=== PATIENT | female | born 1955 | race Caucasian/White ===

== ENCOUNTER 2018-03-31 13:00 | Outpatient (CLI) | payer BC ==
--- NOTE | 2018-03-31 13:57 | MMO ---
BILATERAL SCREENING MAMMOGRAM: Date: 03/31/18 HISTORY: 62-year-old female. Routine screening mammography. COMPARISON: 12/13/12, 12/15/13, 02/06/15, 02/19/16, 03/31/17. TECHNIQUE: CC and MLO views of both breasts are submitted for interpretation. Cleavage view also provided. This patient's mammogram was reviewed with the assistance of computer-aided detection. FINDINGS: The breasts are composed of scattered fibroglandular tissue. Bilaterally, no suspicious dominant mass , architectural distortion, or suspicious calcifications. Benign-appearing calcifications in the left breast. There is a cluster of calcifications in the upper outer left breast. IMPRESSION: BIRADS 0: Incomplete: Need Additional Imaging Evaluation and/or Prior Mammograms for Comparison RECOMMENDATION: Spot magnification compression views of the left breast in the CC and MLO projection. Mediolateral vi ews should also be performed. The facility will notify patient of need for additional imaging services. POS: [facility]
== END 2018-03-31 13:01 | disposition home or self-care (01) ==
LOC: SCSMAMMO 13:00
PROVIDERS: ATTEND Obstetrics & Gynecology
DX: Z12.31 Encounter for screening mammogram for malignant neoplasm of breast (principal)
CPT/HCPCS: 77067

== ENCOUNTER 2018-04-08 13:42 | Outpatient (CLI) | payer BC | END 2018-04-08 13:43 | disposition home or self-care (01) | LOC: BICMAMMO 13:42 | PROVIDERS: ATTEND Obstetrics & Gynecology | DX: R92.8 Other abnormal and inconclusive findings on diagnostic imaging of breast (principal); Z80.3 Family history of malignant neoplasm of breast; R92.1 Mammographic calcification found on diagnostic imaging of breast | CPT/HCPCS: G0279 ==

== ENCOUNTER → 2018-04-14 | Day surgery (SDC) | payer OTHER ==
--- NOTE | 2018-04-14 10:15 | MMO ---
PROCEDURE NOTE: Date: 04/14/18 PREPROCEDURE DIAGNOSIS: Left breast calcification upper outer left breast. POSTPROCEDURE DIAGNOSIS: Left breast calcification upper outer left breast. PROCEDURE: Stereotactic biopsy of left breast calcifications using mammographic guidance. LABORATORY TECH: Dr. Godwin. COMPLICATIONS: None. SPECIMEN: Seven 10 gauge core biopsy specimens of left breast calcifications. ANESTHESIA: 11 mL of buffered 1% lidocaine. TECHNIQUE: Prior to the procedure, the risks and benefits of a stereotactic biopsy of the patient's left breast calcifications were explained to the patient and she consented fully to the procedure. Approach from lateral was performed. The calcifications were localized by the stereotactic machine. T he lateral aspect of the breast was prepped with Betadine. Lidocaine was used to anesthetize the skin and soft tissues surrounding the calcifications. A small s kin incision was made allowing for passage of the 10 gauge vacuum-assisted core biopsy device. The core biopsy device was then advanced into the breast using stereotactic guidance into the region of the calcifications. Once in the region of the calcifications, seven 10 gauge vacuum-assisted core biopsy specimens were obtained. A specimen radiograph was performed of the surgical specimen showing calcifications within at least two of the core biopsy specimens. A biopsy clip was then placed at the biopsy site. The needle was removed and pressure was held to geneva ntain hemostasis. A postprocedure mammogram was performed showing a device clip at the biopsy site. There may be one re sidual calcification adjacent to the biopsy clip. IMPRESSION: Status post successful stereotactic biopsy of left breast calcifications. POS: [facility]
== END ==
LOC: MAMMO 07:07
PROVIDERS: ATTEND Obstetrics & Gynecology
PROC: 0HBU3ZX Excision of Left Breast, Percutaneous Approach, Diagnostic (ICD-10-PCS; principal; 2018-04-14)
DX: C50.412 Malignant neoplasm of upper-outer quadrant of left female breast (principal)
CPT/HCPCS: 19081; 76098; 88305; 88341; 88342

== ENCOUNTER 2018-05-07 15:46 | Outpatient (CLI) | payer BC ==
[2018-05-07 17:03] LABS: #Eosinphils 0.2 thou/uL (0.0-0.7); #Lymphocytes 2.6 thou/uL (1.20-3.40); #Monocytes 0.6 thou/uL (0.11-0.59); #Neutrophils 4.9 thou/uL (1.40-6.50); %Basophils 0.3 % (0.0-1.0); %Eosinophils 2.2 % (0.0-10.0); %Lymphocytes 31.2 % (21.0-51.0); %Monocytes 7.3 % (0.0-10.0); %Neutrophils 59.1 % (42.0-75.0); Hemoglobin 13.8 g/dL (12.0-16.0); Mean Corpuscular HGB CONC 34.4 g/dL (32.0-36.0); Mean Corpuscular Hemoglobin 32.3 pg (27.0-31.0); Mean Platelet Volume 7.3 fL (7.4-10.4); Platelet Count 298 thou/uL (130-400); RBC Distribution Width 11.4 % (11.5-14.5); Red Blood Cell (RBC) Count 4.29 mill/uL (4.20-5.40); White Blood Cell (WBC) Count 8.3 thou/uL (4.8-10.8)
[2018-05-07 17:16] LABS: Anion Gap 12 mmol/L (10-20); BUN (Urea Nitrogen) 12 mg/dL (9.8-20.1); Calc. Creatinine Clearance 0 mL/min (70-130); Calcium 10.1 mg/dL (7.8-10.44); Carbon Dioxide 26 mmol/L (22-29); Chloride 109 mmol/L (98-107); Estimated GFR-MDRD 81; Glucose 91 mg/dL (70-105); Sodium 143 mmol/L (136-145)
--- NOTE | 2018-05-08 22:45 | EKG ---
Test Reason : Blood Pressure : / mmHG Vent. Rate : 074 BPM Atrial Rate : 074 BPM P-R Int : 152 ms QRS Dur : 072 ms QT Int : 376 ms P-R-T Axes : 064 055 020 degrees QTc Int : 417 ms Normal sinus rhythm Normal ECG No previous ECGs available Confirmed by JEREMY ETIENNE, DR. Donis ([id number]) on 05/08/2018 10:45:19 PM Referred By: ARMANDO Confirmed By:DR. Jewels LUAN MD
== END 2018-05-07 15:47 | disposition home or self-care (01) ==
LOC: LABBT 15:46
PROVIDERS: ATTEND Surgery
DX: Z01.818 Encounter for other preprocedural examination (principal); C50.912 Malignant neoplasm of unspecified site of left female breast
CPT/HCPCS: 80048; 85025; 93005; 93010

== ENCOUNTER 2018-05-11 07:01 | Day surgery (SDC) | payer BC ==
[2018-05-07 16:07] VITALS: BMI 37.9
[2018-05-11] MEDS ORDERED: Bupivacaine/Epinephrine 0.25% 30 ML VIAL ONE (08:53)
[2018-05-11] MEDS ORDERED: Lidocaine 2% PF Inj 2 ML VIAL ONE (08:53)
[2018-05-11] MEDS ORDERED: CEFAZOLIN/Water 2 GM/20 ML SYRINGE ONE (09:33)
[2018-05-11] MEDS ORDERED: Labetalol HCl 100 MG/20 ML VIAL ONE (09:35)
--- NOTE | 2018-05-11 09:47 | NM ---
NUCLEAR MEDICINE LYMPHOSCINTIGRAPHY: HISTORY: Left breast cancer. COMPARISON: None. TECHNIQUE: The patient was administered 0.435 mCi of Technetium 99m filtered sulfur colloid subcutaneously. Rad iotracer was administered at the 12, 3, 6, and 9 o'clock positions with respect to the nipple. FINDINGS: There is evidence of a sentinel lymph node in the left axilla. The skin was marked. IMPRESSION: Left axillary sentinel lymph node. POS: [facility]
[2018-05-11] MEDS ORDERED: Fentanyl 100 MCG/2 ML VIAL ONE ×3 (10:09→12:00)
[2018-05-11] MEDS ORDERED: Midazolam HCl 2 mg/2 ml Vial ONE (10:09)
[2018-05-11] MEDS ORDERED: Ondansetron HCl/PF 4 MG/2 ML Vial ONE (12:11)
[2018-05-11] MEDS ORDERED: HYDROcodone/Acetaminophen 5/325 mg Tablet ONE (12:54)
--- NOTE | 2018-05-11 13:23 | MMO ---
LEFT BREAST NEEDLE LOCALIZATION FOR SURGICAL EXCISION. The exam is also surgical specimen. FINDINGS: Successful left breast needle localization. A 10 cm Clawson needle and wire are adjacent to the surgi zulay clip. Postprocedure exam was marked. There are no immediate or postprocedure complications. TECHNIQUE: Consent was obtained to perform a left breast needle localizaiton for surgical excision, in a patient with known breast cancer. The left breast is compressed in the lateral medial orientation. Clip as identified. The skin was prepped and draped in a sterile fashion. 1% Lidocaine , buffered with sod ium bicarbonate, was used for local anesthesia. The 10 cm Clawson needle was advanced via the lateral medial approach. Needle position was confirmed with respect to the clip. The breast was subsequentl y compressed in the CC orientation. The clip was identified. The wire was deployed. Post-deploymen t images were obtained. Needle and wire positioning was appropriate. The needle and wire were secur ed to the patient. The patient tolerated the procedure well. No immediate or post-procedure complic ation. SURGICAL SPECIMEN: A specimen containing the clip and wire was submitted. Results were conveyed to Dr. Jackman 05/11/18 at 11:20 a.m. IMPRESSION: 1. Successful needle localization. 2. Specimen demonstrates clip and wire. CODE CR POS: [facility]
[2018-05-11] MEDS ORDERED: PROPOFOL 200 MG/20 ML VIAL ONE (13:50)
[2018-05-11] MEDS ORDERED: Lidocaine 1% PF 5 ML VIAL ONE (13:50)
[2018-05-11] MEDS ORDERED: ePHEDrine/0.9% NaCl/PF SYRINGE 50 mg/10 ml ONE (13:50)
[2018-05-11] MEDS ORDERED: PHENYLEPHRINE-NS 100 MCG/ML 10 ML SYRINGE ONE (13:50)
--- NOTE | 2018-05-12 13:42 | OP ---
DATE OF PROCEDURE: 05/11/2018 PREOPERATIVE DIAGNOSIS: Left breast cancer. POSTOPERATIVE DIAGNOSIS: Left breast cancer. PROCEDURES: 1. Left partial mastectomy after needle localization. 2. Left deep axillary node biopsy (left sentinel node biopsy). SURGEON: Edmond Jackman M.D. ANESTHESIA: General. ESTIMATED BLOOD LOSS: Minimal. COMPLICATIONS: None. SPECIMEN: Left breast mass marked with two short superior, one long lateral and sent to path for fin al diagnosis. Summit node x1 sent to pathology for final diagnosis. TECHNIQUE: The patient underwent preop needle localization wire placement in the left breast as well as lymphoscintigraphy revealing uptake in the left axilla. DESCRIPTION OF PROCEDURE: The patient was taken to the operating room and placed supine on the table . After general anesthetic was obtained, left breast, axilla, chest were all prepped and draped in a sterile fashion. Transverse incision was made on the areolar edge of the left upper outer breast. Flaps were raised superior and inferolaterally and posterior to the needle localization wire. The sp ecimen was marked and sent to x-ray, which revealed the biopsy clip to be in the specimen. The wound was irrigated. Local anesthetic was applied. The wound was closed using 3-0 Vicryl, 4-0 Monocryl, and Dermabond. Next, an incision was made on the inferior hairline of the left axilla. Clavipectora l fascia was entered. Neoprobe was used to find the area of increased uptake. A sentinel node was f ound with high counts on the back table. The background counts then dropped to zero. This was sent to path as sentinel node. This wound was irrigated and closed using 3-0 Vicryl, 4-0 Monocryl, and De rmabond. The patient en route to recovery in stable condition. All instrument counts, needle counts , lap counts were correct.
== END 2018-05-11 13:35 | disposition home or self-care (01) ==
LOC: SDC 07:01
PROVIDERS: ATTEND Surgery
PROC: 0HBU0ZZ Excision of Left Breast, Open Approach (ICD-10-PCS; principal; 2018-05-11)
PROC: 07B60ZX Excision of Left Axillary Lymphatic, Open Approach, Diagnostic (ICD-10-PCS; principal; 2018-05-11)
DX: C50.812 Malignant neoplasm of overlapping sites of left female breast (principal); D64.9 Anemia, unspecified; E78.5 Hyperlipidemia, unspecified; G43.909 Migraine, unspecified, not intractable, without status migrainosus; E66.3 Overweight; Z68.37 Body mass index [BMI] 37.0-37.9, adult; Z17.0 Estrogen receptor positive status [ER+]; Z79.899 Other long term (current) drug therapy; Z88.2 Allergy status to sulfonamides
CPT/HCPCS: 19281; 76098; 78195; 88307; 88342; 96374; 96375; A9541; J2001; J2250; J2405; J2704; J3010; Q9968

== ENCOUNTER 2018-10-07 12:37 | Outpatient (CLI) | payer BC | END 2018-10-07 12:38 | disposition home or self-care (01) | LOC: CP 12:37 | PROVIDERS: ATTEND Family Medicine | DX: J45.41 Moderate persistent asthma with (acute) exacerbation (principal) | CPT/HCPCS: 94060; 94727 ==

== ENCOUNTER 2019-05-27 09:20 | Outpatient (CLI) | payer BC ==
--- NOTE | 2019-05-27 09:56 | MMO ---
Bilateral MAMMO Bilat Diag DDI+DMITRY. CLINICAL HISTORY: Patient is 63 years old and is seen for diagnostic exam. The patient has the following family history of breast cancer: mother. The patient has a history of malignant (generic) in the left breast in May,. The patient has a history of left Lumpectomy in May, - malignant and left Stereotatic Biopsy in April, - malignant. VIEWS: The views performed were: bilateral craniocaudal with tomosynthesis; bilateral mediolateral oblique with tomosynthesis; and bilateral mediolateral with tomosynthesis. FILMS COMPARED: The present examination has been compared to prior imaging studies performed at [facility] on 04/08/2018, and at [facility] on 03/31/2017, 03/31/2018 and 04/14/2018. This study has been interpreted with the assistance of computer-aided detection. MAMMOGRAM FINDINGS: There are scattered fibroglandular densities. There are new post operative changes seen in the left breast. There are no suspicious masses, suspicious calcifications, or new areas of architectural distortion. IMPRESSION: THERE IS NO MAMMOGRAPHIC EVIDENCE OF MALIGNANCY. A ROUTINE FOLLOW-UP MAMMOGRAM IN 1 YEAR IS RECOMMENDED. THE RESULTS OF THIS EXAM WERE SENT TO THE PATIENT. ACR BI-RADS Category 2 - Benign finding MAMMOGRAPHY NOTE: 1. A negative mammogram report should not delay a biopsy if a dominant of clinically suspicious mass is present. 2. Approximately 10% to 15% of breast cancers are not detected by mammography. 3. Adenosis and dense breasts may obscure an underlying neoplasm. Reported by: JOHN PAUL RAMIREZ MD Electonically Signed: [id number]
== END 2019-05-27 09:21 | disposition home or self-care (01) ==
LOC: BICMAMMO 09:20
PROVIDERS: ATTEND Internal Medicine Hematology & Oncology
DX: Z08 Encounter for follow-up examination after completed treatment for malignant neoplasm (principal); Z85.3 Personal history of malignant neoplasm of breast; Z80.3 Family history of malignant neoplasm of breast; Z91.89 Other specified personal risk factors, not elsewhere classified; Z98.890 Other specified postprocedural states
CPT/HCPCS: 77066; G0279

== ENCOUNTER 2020-05-10 08:36 | Outpatient (CLI) | payer OTHER ==
[2020-05-10 09:16] LABS: Estimated GFR-MDRD - POC Greater than 90
--- NOTE | 2020-05-10 12:45 | CT ---
CT OF THE ABDOMEN WITH AND WITHOUT IV CONTRAST: Date: 05/10/2020 INDICATION: 64-year-old female with history of right renal angiomyolipoma and renal cyst. COMPARISON: CT abdomen and pelvis dated 02/23/2020. FINDINGS: The lung bases are clear. No definite infiltrative abnormality is evident. There are some small areas of subsegmental volume loss involving the lung bases. There is diffuse fatty liver. There are numerous gallstones within the gallbladder. The pancreas, adr enal glands, and spleen are normal appearing. There is a 2.9 cm hyperdense cyst involving the left mid kidney. Small subcentimeter cysts are seen i nvolving the lower pole of the left kidney. There are persistent and stable appearing fat density mass lesions of the right kidney. One of the mo re conspicuous is seen within the superior pole measuring 13.0 mm. An additional is seen involving th e posterior aspect of the mid to inferior right kidney measuring 11.0 mm. There is an additional smal ler 7.0 mm lesion involving the lower pole of the right kidney. There is a 4.4 cm fat density mass le abraham seen within the inferior aspect of the right perinephric space, which is stable. No gross urothe lial lesion is evident. There are mild vascular calcifications involving the abdominal aorta. There a re scattered degenerative and osteoarthritic changes. There is a fat-containing umbilical hernia. IMPRESSION: 1. Stable right-sided renal angiomyolipomas. 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 There is a perinephric fat density mass lesion suspicious for a retroperitoneal perinephric lipom a. 2. Stable proteinaceous cyst of the left mid kidney. 3. Fatty liver. 4. Cholelithiasis. POS: [facility]
== END 2020-05-10 08:37 | disposition home or self-care (01) ==
LOC: BICCT 08:36
PROVIDERS: ATTEND Urology
DX: N28.1 Cyst of kidney, acquired (principal); D17.71 Benign lipomatous neoplasm of kidney; K80.20 Calculus of gallbladder without cholecystitis without obstruction; K76.0 Fatty (change of) liver, not elsewhere classified
CPT/HCPCS: 74170; 82565

== ENCOUNTER 2020-06-14 08:36 | Outpatient (CLI) | payer OTHER ==
--- NOTE | 2020-06-14 09:03 | MMO ---
Bilateral MAMMO Bilat Diag DDI+DMITRY. CLINICAL HISTORY: Patient is 64 years old and is seen for diagnostic exam. The patient has the following family history of breast cancer: mother. The patient has a history of malignant (generic) in the left breast in May,. The patient has a history of left Lumpectomy in May, - malignant and left Stereotatic Biopsy in April, - malignant. VIEWS: The views performed were: bilateral craniocaudal with tomosynthesis; bilateral mediolateral oblique with tomosynthesis; and bilateral mediolateral with tomosynthesis. FILMS COMPARED: The present examination has been compared to prior imaging studies performed at [facility] on 04/08/2018 and 05/27/2019, and at [facility] on 03/31/2018 and 04/14/2018. This study has been interpreted with the assistance of computer-aided detection. MAMMOGRAM FINDINGS: There are scattered fibroglandular densities. There are dystrophic calcifications with associated post operative change seen in the left breast. There are no suspicious masses, suspicious calcifications, or new areas of architectural distortion. IMPRESSION: THERE IS NO MAMMOGRAPHIC EVIDENCE OF MALIGNANCY. A ROUTINE FOLLOW-UP MAMMOGRAM IN 1 YEAR IS RECOMMENDED. THE RESULTS OF THIS EXAM WERE SENT TO THE PATIENT. ACR BI-RADS Category 2 - Benign finding MAMMOGRAPHY NOTE: 1. A negative mammogram report should not delay a biopsy if a dominant of clinically suspicious mass is present. 2. Approximately 10% to 15% of breast cancers are not detected by mammography. 3. Adenosis and dense breasts may obscure an underlying neoplasm. Reported by: JOHN PAUL RAMIREZ MD Electonically Signed: [id number]
== END 2020-06-14 08:37 | disposition home or self-care (01) ==
LOC: BICMAMMO 08:36
PROVIDERS: ATTEND Internal Medicine Hematology & Oncology
DX: Z08 Encounter for follow-up examination after completed treatment for malignant neoplasm (principal); Z85.3 Personal history of malignant neoplasm of breast
CPT/HCPCS: 77066; G0279

== ENCOUNTER 2021-06-21 08:38 | Outpatient (CLI) | payer OTHER | END 2021-06-21 08:39 | disposition home or self-care (01) | LOC: BICMAMMO 08:38 | PROVIDERS: ATTEND Internal Medicine Hematology & Oncology | DX: Z08 Encounter for follow-up examination after completed treatment for malignant neoplasm (principal); Z80.3 Family history of malignant neoplasm of breast; Z85.3 Personal history of malignant neoplasm of breast; Z98.890 Other specified postprocedural states | CPT/HCPCS: 77066; G0279 ==

== ENCOUNTER 2022-06-23 09:22 | Outpatient (CLI) | payer OTHER | END 2022-06-23 09:23 | disposition home or self-care (01) | LOC: BICMAMMO 09:22 | PROVIDERS: ATTEND Internal Medicine Hematology & Oncology | DX: Z08 Encounter for follow-up examination after completed treatment for malignant neoplasm (principal); Z85.3 Personal history of malignant neoplasm of breast | CPT/HCPCS: 77066; G0279 ==

== ENCOUNTER 2023-06-26 08:55 | Outpatient (CLI) | payer MEDICARE, BC | END 2023-06-26 08:56 | disposition home or self-care (01) | LOC: BICMAMMO 08:55 | PROVIDERS: ATTEND Internal Medicine Hematology & Oncology | DX: Z08 Encounter for follow-up examination after completed treatment for malignant neoplasm (principal); Z85.3 Personal history of malignant neoplasm of breast | CPT/HCPCS: 77066; G0279 ==

== ENCOUNTER 2024-07-05 09:30 | Outpatient (CLI) | payer MEDICARE, BC | END 2024-07-05 09:31 | disposition home or self-care (01) | LOC: BICMAMMO 09:30 | PROVIDERS: ATTEND Obstetrics & Gynecology | DX: Z12.31 Encounter for screening mammogram for malignant neoplasm of breast (principal); Z80.3 Family history of malignant neoplasm of breast; Z85.3 Personal history of malignant neoplasm of breast; Z91.89 Other specified personal risk factors, not elsewhere classified; Z98.890 Other specified postprocedural states | CPT/HCPCS: 77063; 77067 ==

== ENCOUNTER 2025-07-18 08:02 | Outpatient (CLI) | payer MEDICARE, BC | END 2025-07-18 08:03 | disposition home or self-care (01) | LOC: BICMAMMO 08:02 | PROVIDERS: ATTEND Obstetrics & Gynecology | DX: Z12.31 Encounter for screening mammogram for malignant neoplasm of breast (principal); Z80.3 Family history of malignant neoplasm of breast; Z85.3 Personal history of malignant neoplasm of breast; Z98.890 Other specified postprocedural states | CPT/HCPCS: 77063; 77067 ==

== ENCOUNTER 2025-07-26 08:00 | Outpatient (CLI) | payer MEDICARE, BC | END 2025-07-26 08:01 | disposition home or self-care (01) | LOC: BICMAMMO 08:00 | PROVIDERS: ATTEND Obstetrics & Gynecology | DX: M85.852 Other specified disorders of bone density and structure, left thigh (principal); E28.39 Other primary ovarian failure; M85.851 Other specified disorders of bone density and structure, right thigh | CPT/HCPCS: 77080 ==